=== PATIENT | male | born 1960 | race Two or more races ===

== ENCOUNTER 2017-09-08 21:39 | Emergency (ER) | payer OTHER ==
[~2017-09-08] VITALS: Ht 185.4 cm; Wt 81.6 kg
--- NOTE | 2017-09-08 21:59 | NUR ---
BIBSELF C/O GENERALIZE CHEST PAIN WITH BURNING SENSATION X 2 DAYS. NO SOB. PAIN IS 6/10 NONRADIATING. A/OX4 VSS NAD. WILL CONTINUE TO MONITOR FOR ANY CHANGES
[2017-09-08] MEDS ORDERED: LIDOCAINE VISCOUS 2% UD 15 ML UDC ONE (22:23)
[2017-09-08] MEDS ORDERED: MAG HYDROX/AL HYDROX/SIMETH 30 ML UDC ONE (22:23)
[2017-09-08] MEDS ORDERED: MAG HYDROX/AL HYDROX/SIMETH 30 ML UDC PO ONE (22:30)
[2017-09-08] MEDS ORDERED: LIDOCAINE VISCOUS 2% UD 15 ML UDC MM ONE (22:30)
[2017-09-08 22:49] LABS: BASOPHILS % (AUTO) 0.6 % (0.0-2.0); EOSINOPHILS # (AUTO) 0.2 /CMM (0.0-0.7); EOSINOPHILS % (AUTO) 3.3 % (0.0-6.0); HEMATOCRIT 39 % (39-51); HEMOGLOBIN 13.3 g/dL (13.5-17.5); LYMPHOCYTES % (AUTO) 27.1 % (20.0-44.0); MEAN CORPUSCULAR HEMOGLOBIN 30 PG (26.0-33.0); MEAN CORPUSCULAR HGB CONC 34 g/dl (31.0-36.0); MEAN CORPUSCULAR VOLUME 87 fL (80-96); MONOCYTES # (AUTO) 0.6 /CMM (0.1-1.30); MONOCYTES % (AUTO) 7.6 % (2.0-12.0); NEUTROPHILS # (AUTO) 4.4 /CMM (1.8-8.9); NEUTROPHILS % (AUTO) 61.4 % (43.0-81.0); PLATELET COUNT (AUTO) 228 /CMM (150-450); RDW COEFFICIENT OF VARIATION 13.1 (11.5-15.0); RED BLOOD CELL COUNT(AUTO) 4.47 MIL/uL (4.5-6.0); WHITE BLOOD COUNT (AUTO) 7.2 K/uL (4.3-11.0)
[2017-09-08 23:03] LABS: CALCIUM, SERUM 8.6 mg/dL (8.5-10.1); CARBON DIOXIDE 25 mmol/L (21-32); CHLORIDE 104 mmol/L (98-107); CREATININE 0.7 mg/dL (0.6-1.3); GLUCOSE 125 mg/dL (74-106); POTASSIUM 4.1 mmol/L (3.5-5.1); SODIUM SERUM 138 mmol/L (136-145); UREA NITROGEN, BLOOD 13 mg/dL (7-18)
[2017-09-08 23:06] LABS: INR 0.96 (0.87-1.13)
[2017-09-08 23:14] LABS: TROPONIN I < 0.017 ng/mL (0.00-0.056)
--- NOTE | 2017-09-08 23:15 | NUR ---
DR. FERRARA AT BEDSIDE SPEAKING TO PT REGARDING RESULTS.
[2017-09-08 23:17] LABS: B-TYPE NATRIURETIC PEPTIDE 41 PG/ML (0-125)
[2017-09-08 23:21] VITALS: BP 141/83
== END 2017-09-08 23:21 | disposition home or self-care (01) ==
LOC: ER 21:40
DX: R07.9 Chest pain, unspecified (principal); K21.9 Gastro-esophageal reflux disease without esophagitis; I10 Essential (primary) hypertension; F17.200 Nicotine dependence, unspecified, uncomplicated; Z88.0 Allergy status to penicillin
CPT/HCPCS: 36415; 71045; 80048; 83880; 84484; 85025; 85730; 93005; 99285; A4606; Z7610

== ENCOUNTER 2018-11-22 19:55 | Emergency (ER) | payer OTHER ==
[~2018-11-22] VITALS: Ht 185.4 cm; Wt 83.9 kg
--- NOTE | 2018-11-22 20:45 | NUR ---
BIBSELF FROM HOME WITH . AAOX4. NAD, BREATHING IS EVEN AND UNLABORED. AMBULATORY. C/O L EYE PAIN 5/10 S/P FOREIGN BODY IN THE EYE YESTERDAY WHILE FIXING A DOOR. PT REPORTS SWELLING HAVE SUBSIDED AND NOT PRESENT UPON ASSESSMENT BUT SLIGHT REDNESS NOTED. NO DISCHARGE OR DRAINAGE NOTED. AT [facility] FOR EVAL.
[2018-11-22] MEDS ORDERED: TETRACAINE HCL/PF 0.5% UD 2 ML BOTTLE ONE (20:48)
[2018-11-22] MEDS ORDERED: FLUORESCEIN SODIUM OPHTH 1 EA STRIP ONE (20:48)
[2018-11-22] MEDS: FLUORESCEIN SODIUM OPHTH 1 EA STRIP OP ONE (20:53)
[2018-11-22] MEDS: TETRACAINE HCL/PF 0.5% UD 2 ML BOTTLE LEFTEYE ONE (20:53)
[2018-11-22 21:02] VITALS: BP 135/82
--- NOTE | 2018-11-22 21:37 | NUR ---
Patient discharged to home in stable condition. Written and verbal after care instructions given. Patient verbalizes understanding of instruction. (pt. name) ambulatory with a steady gait
== END 2018-11-22 21:39 | disposition home or self-care (01) ==
LOC: ER 20:00
DX: H00.014 Hordeolum externum left upper eyelid (principal); I10 Essential (primary) hypertension; F17.200 Nicotine dependence, unspecified, uncomplicated; Z88.0 Allergy status to penicillin

== ENCOUNTER 2019-06-18 20:53 | Emergency (ER) | payer OTHER ==
[~2019-06-18] VITALS: Ht 185.4 cm; Wt 83.9 kg
[2019-06-18] MEDS ORDERED: CLINDAMYCIN HCL 150 MG CAPSULE PO ONE ×2 (22:18→22:30)
[2019-06-18 22:25] VITALS: BP 141/79
== END 2019-06-18 22:26 | disposition home or self-care (01) ==
LOC: ER 20:54
DX: L03.211 Cellulitis of face (principal); I10 Essential (primary) hypertension; F17.200 Nicotine dependence, unspecified, uncomplicated; Z88.0 Allergy status to penicillin

== ENCOUNTER 2021-03-16 11:45 | Emergency (ER) | payer MEDICAID, OTHER ==
[~2021-03-16] VITALS: Ht 185.4 cm; Wt 98.4 kg
[2021-03-16 11:55] VITALS: BP 128/91
[2021-03-16] MEDS ORDERED: GELATIN SPONGE,ABSORBABLE 1 SPONGE SPONGE TP ONE ×2 (12:08→12:11)
[2021-03-16 13:22] LABS: BASOPHILS # (AUTO) 0.1 K/uL (0.0-0.2); BASOPHILS % (AUTO) 1.1 % (0.0-2.0); EOSINOPHILS % (AUTO) 1.3 % (0.0-6.0); HEMATOCRIT 44 % (39-51); HEMOGLOBIN 14.8 g/dL (13.5-17.5); LYMPHOCYTES # (AUTO) 2.4 K/uL (0.8-4.8); MEAN CORPUSCULAR HGB CONC 34 g/dl (31.0-36.0); MEAN CORPUSCULAR VOLUME 89 fL (80-96); MONOCYTES # (AUTO) 0.7 K/uL (0.1-1.30); MONOCYTES % (AUTO) 9.2 % (2.0-12.0); NEUTROPHILS % (AUTO) 55.4 % (43.0-81.0); PLATELET COUNT (AUTO) 291 K/uL (150-450); RED BLOOD CELL COUNT(AUTO) 4.93 MIL/uL (4.5-6.0); WHITE BLOOD COUNT (AUTO) 7.2 K/uL (4.3-11.0)
[2021-03-16 13:43] LABS: CALCIUM, SERUM 8.5 mg/dL (8.5-10.1); CREATININE 0.6 mg/dL (0.6-1.3)
== END 2021-03-16 13:59 | disposition home or self-care (01) ==
LOC: ER 11:50
DX: K06.8 Other specified disorders of gingiva and edentulous alveolar ridge (principal); I10 Essential (primary) hypertension; F17.200 Nicotine dependence, unspecified, uncomplicated; Z88.0 Allergy status to penicillin
CPT/HCPCS: 36415; 80048-TC; 85025-TC; 85730-TC; 86850-TC

== ENCOUNTER 2022-10-23 19:23 | Emergency (ER) | payer MEDICAID ==
[~2022-10-23] VITALS: Ht 182.9 cm; Wt 83.9 kg
--- NOTE | 2022-10-23 19:46 | NUR ---
BIBWIFE FOR AVULSION R HAND S/P "PUNCHING TV" TETANUS UTD. PT AAO X 4, BREATHING UNLABORED. PT DENIES NUMBNESS, ABLE TO MOVE ALL FINGERS. PT ATTACHED TO MONITOR AND PULSE OX. AWAITING MD CAVANAUGH.
[2022-10-23] MEDS ORDERED: LIDOCAINE 1%-EPI 1:100,000 20 ML VIAL ONE (19:57)
--- NOTE | 2022-10-23 20:03 | NUR ---
DR BAZAN AT BEDSIDE
[2022-10-23] MEDS ORDERED: DOXY100T2 PO (20:38)
[2022-10-23] MEDS ORDERED: HYDR-3972 PO (20:44)
[2022-10-23 20:51] VITALS: BP 132/78
--- NOTE | 2022-10-23 20:51 | NUR ---
Patient discharged to home in stable condition. Written and verbal after care instructions given. Patient verbalizes understanding of instruction. Pt ambulatory with a steady gait
== END 2022-10-23 20:52 | disposition home or self-care (01) ==
LOC: ER 19:26
DX: S61.411A Laceration without foreign body of right hand, initial encounter (principal); I10 Essential (primary) hypertension; Z88.0 Allergy status to penicillin; F17.200 Nicotine dependence, unspecified, uncomplicated; Z79.899 Other long term (current) drug therapy; W25.XXXA Contact with sharp glass, initial encounter; Y93.89 Activity, other specified; Y92.89 Other specified places as the place of occurrence of the external cause; Y99.8 Other external cause status
CPT/HCPCS: 99283; 12002; J3490

== ENCOUNTER 2024-01-22 10:57 | Emergency (ER) | payer MEDICARE, OTHER ==
[~2024-01-22] VITALS: Ht 185.4 cm; Wt 97.5 kg
[~2024-01-22 10:57] MED LIST: DOXY100T2 PO; HYDR-3972 PO
[2024-01-22 11:53] LABS: BASOPHILS % (AUTO) 0.7 % (0.0-2.0); EOSINOPHILS # (AUTO) 0.1 K/uL (0.0-0.7); EOSINOPHILS % (AUTO) 1.7 % (0.0-6.0); HEMATOCRIT 44 % (39-51); HEMOGLOBIN 14.5 g/dL (13.5-17.5); LYMPHOCYTES # (AUTO) 1.6 K/uL (0.8-4.8); LYMPHOCYTES % (AUTO) 25.9 % (20.0-44.0); MEAN CORPUSCULAR HEMOGLOBIN 29 PG (26.0-33.0); MEAN CORPUSCULAR HGB CONC 33 g/dl (31.0-36.0); MEAN CORPUSCULAR VOLUME 87 fL (80-96); MONOCYTES # (AUTO) 0.5 K/uL (0.1-1.30); MONOCYTES % (AUTO) 7.9 % (2.0-12.0); NEUTROPHILS # (AUTO) 3.9 K/uL (1.8-8.9); NEUTROPHILS % (AUTO) 63.8 % (43.0-81.0); PLATELET COUNT (AUTO) 262 K/uL (150-450); RED BLOOD CELL COUNT(AUTO) 5.08 MIL/uL (4.5-6.0); RED CELL DISTRIBUTION WIDTH 13.4 % (11.5-15.0); WHITE BLOOD COUNT (AUTO) 6.2 K/uL (4.3-11.0)
[2024-01-22 12:01] LABS: CALCIUM, SERUM 8.8 mg/dL (8.5-10.1); CARBON DIOXIDE 28 mmol/L (21-32); CHLORIDE 105 mmol/L (98-107); CREATININE 0.6 mg/dL (0.6-1.3); GLUCOSE 105 mg/dL (74-106); POTASSIUM 3.8 mmol/L (3.5-5.1); SODIUM SERUM 138 mmol/L (136-145); UREA NITROGEN, BLOOD 8 mg/dL (7-18)
[2024-01-22 15:15] VITALS: BP 129/76; TEMP 98; O2SAT 99
== END 2024-01-22 15:15 | disposition home or self-care (01) ==
LOC: ER 11:03
DX: R07.89 Other chest pain (principal); E78.5 Hyperlipidemia, unspecified; F17.200 Nicotine dependence, unspecified, uncomplicated; I10 Essential (primary) hypertension; Z79.899 Other long term (current) drug therapy; Z79.891 Long term (current) use of opiate analgesic; Z88.0 Allergy status to penicillin
CPT/HCPCS: 36415; 71045-TC; 80048-TC; 84484-TC; 85025-TC

== ENCOUNTER 2024-08-12 14:12 | Emergency (ER) | payer MEDICARE, OTHER ==
[~2024-08-12] VITALS: Ht 182.9 cm; Wt 97.5 kg
[2024-08-12] MEDS ORDERED: KETOROLAC TROMETHAMINE INJ 30 MG/ML VIAL ONE (15:40)
[2024-08-12] MEDS ORDERED: SUMATRIPTAN SUCCINATE 6 MG/0.5 ML VIAL SQ ONE (15:40)
[2024-08-12] MEDS: KETOROLAC TROMETHAMINE INJ 30 MG/ML VIAL IM ONE (15:46)
[2024-08-12] MEDS: SUMATRIPTAN SUCCINATE 6 MG/0.5 ML VIAL SQ ONE (15:46)
[2024-08-12] MEDS ORDERED: KETO10TA2 PO (16:05)
[2024-08-12] MEDS ORDERED: SUMA100T PO (16:05)
[2024-08-12 16:13] VITALS: BP 141/88; TEMP 97.7; O2SAT 97
== END 2024-08-12 16:13 | disposition home or self-care (01) ==
LOC: ER 14:45
DX: G43.909 Migraine, unspecified, not intractable, without status migrainosus (principal); I10 Essential (primary) hypertension; F17.200 Nicotine dependence, unspecified, uncomplicated; E78.5 Hyperlipidemia, unspecified; Z88.0 Allergy status to penicillin
CPT/HCPCS: 99284; 96372 ×2; J1885; J3030